=== PATIENT | male | born 1940 | race Caucasian/White ===

== ENCOUNTER → 2020-01-18 | Day surgery (SDC) | payer MEDICARE, BC ==
[2020-01-17 08:34] VITALS: BMI 29.8
[~2020-01-18] MED LIST: ALPRAZolam 0.25 MG TAB PO PRN; ALPRAZolam 0.5 MG TAB PO PRN; ASPIRIN 325 MG TAB PO STA; IOPAMIDOL-370 125ML BTL INJ ONE; LIDOCAINE 1% INJ 10MG/ML (20 ML MDV) SQ ONE; MIDAZOLAM 2 MG/2 ML VIAL IV ONE; NITROGLYCERIN SL TABS 0.4 MG TAB SUBLINGUAL PRN; RX INFO: IV CONTRAST WAS GIVEN 1 EACH MISC MISCELLANE PRN; SODIUM CHLORIDE 0.9% 1,000 ML IV ONE; SODIUM CHLORIDE 0.9% 1,000 ML IV SCH; SODIUM CHLORIDE 0.9% 1,000 ML in EMPTY BAG 1 BAG IV ONE; fentaNYL (PF) 50 MCG/ML 2 ML AMP IV ONE
[2020-01-18 08:45] LABS: Glucose,Whole Blood 144 mg/dL (75-99)
[2020-01-18 09:00] VITALS: RESP 16; TEMP 98.2
[2020-01-18] MEDS: VERAPAMIL SYRINGE (5 MG/10 ML) INTRAARTER ONE ×2 (11:45→11:59)
--- NOTE | 2020-01-18 12:18 | P.CARDCATH ---
Date of Procedure: 01/18/20 Preoperative Diagnosis: Exertional angina with history of previous stent placement and ischemic heart disease Postoperative Diagnosis: Stable coronary artery disease Procedure(s) Performed: Left heart catheterization without left ventriculography Description of Procedure: HISTORY: This is a 79-year-old gentleman with history of ischemic heart disease with a previous stent placement of the circumflex. Patient is known to have total occlusion of the RCA. He was seen in the office with complaints of recent onset exertional angina. In view of his previous history and ongoing symptoms, patient is advised to have a cardiac catheterization for definitive diagnosis. CONSENT:I have discussed the risks, benefits and alternative therapies for the above-mentioned procedure and for both sedation/analgesia as well as necessary b lood product administration, if indicated, as they pertain to this patient. The patient has indicated understanding and acceptance of the risks and procedures discussed. [] PROCEDURE: Patient was brought to the lab in a fasting state. Patient was given some IV sedation. The right wrist is infiltrated with lidocaine and right radial artery was entered using Seldinger technique. A 6-Faroese catheter was left in place and selective coronary arteriography was performed. Patient tolerated the procedure well. TR band was applied for hemostasis. No immediate complications were noted and patient was transferred to [facility] in a stable condition Conscious Sedation: Versed 1mg Fentanyl 25 g Duration 18minutes HEMODYNAMICS: Aortic pressure is 140/70. The left ventricle end-diastolic pres sure was 16. No gradient across the aortic valve SELECTIVE CORONARY ARTERIOGRAPHY: LEFT MAIN: This is normal in length and free of occlusive disease THE LEFT ANTERIOR DESCENDING CORONARY ARTERY:. This is a good caliber vessel giving rise to good-sized diagonal branch. The LAD has mild diffuse plaque without any Sigmund focal lesion. The diagonal branche has about 60% ostial and proximal lesion which is chronic THE LEFT CIRCUMFLEX AND IS CORONARY ARTERY: This a good caliber vessel with patent stent in the midportion THE RIGHT CORONARY ARTERY:. This is totally occluded with good collateral from the left coronary system LEFT VENTRICULOGRAPHY: Not performed FINAL IMPRESSION:. Stable coronary artery disease with patent stent in the circumflex, total occlusion of RCA and moderate disease in the diagonal PLAN: Continuation of the medical therapy and this factor modification PROGNOSIS:Fair
[2020-01-18 15:39] VITALS: PULSE 40
[2020-01-18 16:49] VITALS: BP 145/76
== END | disposition home or self-care (01) ==
LOC: CATHCVL 08:00
PROVIDERS: ATTEND Internal Medicine Cardiovascular Disease
DX: I25.119 Atherosclerotic heart disease of native coronary artery with unspecified angina pectoris (principal); I25.82 Chronic total occlusion of coronary artery; I25.9 Chronic ischemic heart disease, unspecified; I10 Essential (primary) hypertension; E78.5 Hyperlipidemia, unspecified; E11.9 Type 2 diabetes mellitus without complications; E78.00 Pure hypercholesterolemia, unspecified; I73.9 Peripheral vascular disease, unspecified; R00.1 Bradycardia, unspecified; I35.1 Nonrheumatic aortic (valve) insufficiency; M19.90 Unspecified osteoarthritis, unspecified site; E66.9 Obesity, unspecified; Z68.29 Body mass index [BMI] 29.0-29.9, adult; Z72.0 Tobacco use; Z95.5 Presence of coronary angioplasty implant and graft; Z79.899 Other long term (current) drug therapy; Z79.82 Long term (current) use of aspirin; Z79.84 Long term (current) use of oral hypoglycemic drugs; Z79.52 Long term (current) use of systemic steroids; Z79.02 Long term (current) use of antithrombotics/antiplatelets
CPT/HCPCS: 93458; C1769; C1894; J2250; J2001; J3010; J1644; Q9967